=== PATIENT | female | born 1950 | race Caucasian/White ===

== ENCOUNTER 2016-09-02 07:53 | Day surgery (SDC) | payer OTHER ==
[~2016-09-02] VITALS: Ht 162.6 cm; Wt 74.4 kg
[~2016-09-02 07:53] MED LIST: ALEVE220 MG PO; ASPIRIN81 M2 PO; CALCIUM 500 WI1 EAC2 PO; CALTRATE 600 +1 EAC1 PO; CALTRATE 6001 TABLE1 PO; DIOVAN160 MG PO; FISH OIL 1,0001 EA10 PO; FISH OIL 1,0001 EAC7 PO; ORACEA40 MG PO; ST. JOSEPH ASPI81 MG PO; SYNTHROID75 MCG PO; VAGIFEM10 MCG VG; VITAMIN D-32000 UNI1 PO; VITAMIN D2000 INTUN PO; VITAMIN D2000 UNIT PO
[2016-09-02 08:21] VITALS: BP 182/80
[2016-09-02 11:25] VITALS: BP 151/68
[2016-09-02 12:16] VITALS: BP 143/70
== END 2016-09-02 12:16 | disposition home or self-care (01) ==
LOC: SDC 07:53
DX: R93.8 Abnormal findings on diagnostic imaging of other specified body structures (principal); N84.0 Polyp of corpus uteri; I10 Essential (primary) hypertension; E03.9 Hypothyroidism, unspecified; J45.909 Unspecified asthma, uncomplicated; Z95.0 Presence of cardiac pacemaker; I49.9 Cardiac arrhythmia, unspecified
CPT/HCPCS: 88305; J0690; J1100; J1885; J2250; J2405; J3010